=== PATIENT | female | born 1960 | race Caucasian/White ===

== ENCOUNTER → 2022-07-29 | Day surgery (SDC) | payer BC, OTHER ==
[~2022-07-29] VITALS: Ht 175.3 cm; Wt 63.5 kg
[~2022-07-29] MED LIST: ALENDRONATE SOD70 MG PO; AMLODIPINE BESYL5 MG PO; ATENOLOL25 MG PO; BUPROPION XL150 MG PO; CATAPRES 0.1MG0.1 MG PO; GABAPENTIN400 MG PO; HYDROCODONE-AC1 EAC1 PO; IBU800 MG PO; LIPITOR TAB 1010 MG PO; LOSARTAN-HCTZ1 EACH PO; XALATAN OP SOL2.5 ML OP
[2022-07-29 07:44] LABS: HEMOGLOBIN 11.4 gm/dl (12.3-15.3); RED BLOOD COUNT 3.81 M/UL (4.00-5.10)
== END | disposition home or self-care (01) ==
LOC: OR 06:33 → EDBD 11:00
PROVIDERS: Orthopaedic Surgery
DX: S52.571A Other intraarticular fracture of lower end of right radius, initial encounter for closed fracture (principal); I10 Essential (primary) hypertension; W19.XXXA Unspecified fall, initial encounter
CPT/HCPCS: 36415; 73110; 76000; 80048; 85027; 93005; C1713; J0171; J0690; J1100; J1885; J2001; J2250; J2405; J2704; J2795; J3010